=== PATIENT | female | born 1960 | race Caucasian/White ===

== ENCOUNTER 2017-03-11 16:57 | Inpatient (IN) | payer SELFPAY ==
[~2017-03-11] VITALS: Ht 165.1 cm; Wt 63.5 kg
[2017-03-11] MEDS ORDERED: SODIUM CHLORIDE 0.9% 1,000 ML IV ONE (18:36)
[2017-03-11] MEDS ORDERED: ONDANSETRON HCL 4MG/2ML VIAL IV STA (18:36)
[2017-03-11 18:57] LABS: BASOPHILS % 0.3 % (0.0-2.0); EOSINOPHILS % 0.2 % (0.0-5.0); HEMATOCRIT. 36.7 % (36.0-48.0); HEMOGLOBIN. 12.4 g/dL (12.0-16.0); LYMPHOCYTES % 9.3 % (20.0-50.0); MEAN CORPUSCULAR HEMOGLOBIN 26.4 pg (28.0-32.0); MEAN CORPUSCULAR VOLUME 78.2 fL (81.0-99.0); MEAN PLATELET VOLUME 9.4 fl (7.4-10.4); MONOCYTES % 5.8 % (2.0-8.0); NEUTROPHILS % 84.4 % (40.0-76.0); PLATELET 364 x1000/uL (130-400); RED BLOOD CELL COUNT 4.69 mill/uL (4.2-5.4); RED CELL DISTRIBUTION WIDTH 14.3 % (11.6-14.6)
[2017-03-11 19:01] LABS: INR 1.1; PROTHROMBIN TIME 11.4 sec (9.4-11.6)
[2017-03-11 19:08] LABS: CARBON DIOXIDE 30 mEq/L (21-32); CHLORIDE 80 mEq/L (98-107)
[2017-03-11] MEDS ORDERED: SODIUM CHLORIDE 0.9% 1,000 ML IV SCH (20:10)
[2017-03-11 21:21] LABS: CLARITY URINE TURBID (CLEAR); COLOR URINE DARK YELLOW (YELLOW); GLUCOSE URINE NEGATIVE (NEGATIVE); KETONES URINE TRACE (NEGATIVE); LEUKOCYTE ESTERASE URINE 3+ (NEGATIVE); NITRITE URINE NEGATIVE (NEGATIVE); OCCULT BLOOD URINE 2+ (NEGATIVE); PROTEIN URINE 2+ (NEGATIVE)
[2017-03-11 22:50] VITALS: BP 132/66
[2017-03-12] VITALS: BP 132/64
[2017-03-12] MEDS ORDERED: ENOXAPARIN 40MG/0.4ML SYR SUBCUT SCH
[2017-03-12] MEDS ORDERED: ACETAMINOPHEN 325MG TABLET PO PRN
[2017-03-12] MEDS ORDERED: IPRATROPIUM/ALBUTEROL 0.5-3(2.5)MG/3ML NEB INH PRN
[2017-03-12] MEDS ORDERED: CLONIDINE 0.1MG TABLET PO PRN
[2017-03-12] MEDS ORDERED: DOCUSATE SODIUM 100MG CAPSULE PO PRN
[2017-03-12] MEDS ORDERED: LEVOFLOXACIN 500MG PREMIX 100 ML IV SCH
[2017-03-12] MEDS ORDERED: MAGNESIUM/ALUMINUM HYDROXIDE/SIMETHICONE 30ML UDC PO PRN
[2017-03-12] MEDS: ONDANSETRON HCL 4MG/2ML VIAL IV PRN ×3 (01:26→19:52)
[2017-03-12] MEDS: METHYLPREDNISOLONE SOD SUCC 125 MG/2 ML VIAL IV SCH ×5 (01:27→23:45)
[2017-03-12] MEDS: SODIUM CHLORIDE 0.9% 1,000 ML IV SCH ×3 (01:27→23:45)
[2017-03-12] MEDS ORDERED: LEVOFLOXACIN 500MG PREMIX 100 ML IV NR (02:00)
[2017-03-12 04:00] VITALS: BP 128/79
[2017-03-12 07:15] LABS: BASOPHILS % 0.1 % (0.0-2.0); EOSINOPHILS % 0.3 % (0.0-5.0); HEMATOCRIT. 34.9 % (36.0-48.0); HEMOGLOBIN. 11.9 g/dL (12.0-16.0); LYMPHOCYTES % 8.3 % (20.0-50.0); MEAN CORPUSCULAR HEMOGLOBIN 26.6 pg (28.0-32.0); MEAN CORPUSCULAR VOLUME 77.9 fL (81.0-99.0); MEAN PLATELET VOLUME 9.6 fl (7.4-10.4); MONOCYTES % 1.9 % (2.0-8.0); NEUTROPHILS % 89.4 % (40.0-76.0); PLATELET 346 x1000/uL (130-400); RED BLOOD CELL COUNT 4.48 mill/uL (4.2-5.4); RED CELL DISTRIBUTION WIDTH 14.5 % (11.6-14.6)
[2017-03-12 08:00] VITALS: BP 125/65
[2017-03-12] MEDS: ASPIRIN 81MG EC TABLET PO SCH (08:46)
[2017-03-12 09:03] LABS: CARBON DIOXIDE 34 mEq/L (21-32); CHLORIDE 86 mEq/L (98-107)
[2017-03-12] MEDS: ENOXAPARIN 30MG/0.3ML SYR SUBCUT SCH (09:10)
[2017-03-12] MEDS ORDERED: PNEUMOCOCCAL 23-VAL P-SAC VAC 0.5 ML IM ONE (10:00)
[2017-03-12 12:00] VITALS: BP 142/62
[2017-03-12 16:00] VITALS: BP 137/78
[2017-03-12 20:00] VITALS: BP 150/73
[2017-03-13] VITALS: BP 136/71
[2017-03-13] MEDS ORDERED: LEVOFLOXACIN 250MG PREMIX 50 ML IV SCH (02:00)
[2017-03-13 04:00] VITALS: BP 147/77
[2017-03-13] MEDS: METHYLPREDNISOLONE SOD SUCC 125 MG/2 ML VIAL IV SCH ×3 (05:34→12:05)
[2017-03-13] MEDS: ONDANSETRON HCL 4MG/2ML VIAL IV PRN ×2 (05:38→12:05)
[2017-03-13 07:37] LABS: EOSINOPHILS % 0.1 % (0.0-5.0); HEMATOCRIT. 34.7 % (36.0-48.0); HEMOGLOBIN. 11.5 g/dL (12.0-16.0); LYMPHOCYTES % 10.1 % (20.0-50.0); MEAN CORPUSCULAR HEMOGLOBIN 26.1 pg (28.0-32.0); MEAN CORPUSCULAR VOLUME 78.6 fL (81.0-99.0); MEAN PLATELET VOLUME 9.5 fl (7.4-10.4); MONOCYTES % 2.8 % (2.0-8.0); PLATELET 299 x1000/uL (130-400); RED BLOOD CELL COUNT 4.41 mill/uL (4.2-5.4); RED CELL DISTRIBUTION WIDTH 14.2 % (11.6-14.6)
[2017-03-13 08:00] VITALS: BP 132/74
[2017-03-13 08:19] LABS: CARBON DIOXIDE 29 mEq/L (21-32); CHLORIDE 91 mEq/L (98-107)
[2017-03-13] MEDS: ASPIRIN 81MG EC TABLET PO SCH (09:25)
[2017-03-13] MEDS: ENOXAPARIN 30MG/0.3ML SYR SUBCUT SCH (09:25)
[2017-03-13 12:00] VITALS: BP 136/83
[2017-03-13 13:09] VITALS: BP 136/83
== END 2017-03-13 16:17 | disposition home or self-care (01) | DRG 469 ==
LOC: ER 18:45 → 8WST 20:11 → EDBEDREQ 20:15 → ENRESERV 21:49
PROVIDERS: ADMIT Hospitalist; ATTEND Hospitalist
DX: N17.9 Acute kidney failure, unspecified (principal); E87.1 Hypo-osmolality and hyponatremia; K52.9 Noninfective gastroenteritis and colitis, unspecified; F17.200 Nicotine dependence, unspecified, uncomplicated; N39.0 Urinary tract infection, site not specified
CPT/HCPCS: 36415; 71010; 80053; 81001; 82962; 83605; 83735; 85025; 85610; 87077; 87086; 87186; 90732; 93005; 93970; 96361; 96374; 99285; J1650; J1956; J2405; J2930; J7030